=== PATIENT | male | born 1970 | race Caucasian/White ===

== ENCOUNTER 2022-05-31 23:38 | Emergency (ER) | payer OTHER ==
[2022-06-01 00:11] VITALS: BP 118/73; PULSE 72; RESP 20; TEMP 98.3; BMI 26.3
[2022-06-01] MEDS ORDERED: ACETAMINOPHEN 500 MG TABLET (FP) PO ONE (00:23)
[2022-06-01] MEDS ORDERED: LIDOCAINE 5% TOPICAL PATCH TP ONE (01:23)
[2022-06-01] MEDS ORDERED: METHOCARBAMOL 500 MG TABLET PO ONE (01:26)
[2022-06-01] MEDS ORDERED: ACETAMINOPHEN 325 MG TABLET (FP) ONE (01:53)
[2022-06-01] MEDS ORDERED: METHOCARBAMOL 500 MG TABLET ONE (01:53)
[2022-06-01] MEDS ORDERED: LIDOCAINE 5% TOPICAL PATCH ONE (01:54)
[2022-06-01] MEDS ORDERED: LIDOCAINE PATCH REMOVAL MC ONE (14:00)
== END 2022-06-01 04:15 | disposition home or self-care (01) ==
LOC: JER 23:38
DX: M54.50 Low back pain, unspecified (principal)
CPT/HCPCS: 71045-TC-FY; 71101-TC-LT-FY; 93005; 93010; 99285-25